=== PATIENT | female | born 1965 | race Hispanic/Latino ===

== ENCOUNTER 2017-04-08 10:48 | Outpatient (CLI) | payer OTHER | END 2017-04-08 10:49 | disposition home or self-care (01) | LOC: DTY/OP 10:48 | PROVIDERS: ATTEND Surgery | DX: E66.01 Morbid (severe) obesity due to excess calories (principal) | CPT/HCPCS: 97802 ==

== ENCOUNTER 2017-05-14 14:30 | Inpatient (IN) | payer MEDICARE, MEDICAID ==
[2017-05-20] MEDS ORDERED: Midazolam HCl 2 mg/2 ml Vial ONE ×2 (09:34→09:35)
[2017-05-20] MEDS ORDERED: Bupivacaine 0.25% HCL 30 ML VIAL ONE (09:34)
[2017-05-20] MEDS ORDERED: Heparin 5,000 UNITS/ML VIAL ONE (09:34)
[2017-05-20] MEDS ORDERED: Lidocaine 1% w/Epinephrine 1:200K 30 ML VIAL ONE (09:34)
[2017-05-20] MEDS ORDERED: CEFAZOLIN/Water 2 GM/20 ML SYRINGE ONE (09:34)
[2017-05-20] MEDS ORDERED: Fentanyl 100 MCG/2 ML VIAL ONE ×4 (09:35→11:51)
[2017-05-20] MEDS ORDERED: diphenhydrAMINE 50 MG/ML VIAL IM PRN (09:51)
[2017-05-20] MEDS ORDERED: Meperidine HCl/PF 25 MG/ML VIAL SLOW IVP PRN (09:51)
[2017-05-20] MEDS ORDERED: HYDROmorphone 10 mg/100 ml CADD IVPB PRN (09:51)
[2017-05-20] MEDS ORDERED: HYDROmorphone 2 MG/ML VIAL SLOW IVP PRN (09:51)
[2017-05-20] MEDS ORDERED: Naloxone HCl 0.4 mg/ml Vial IV PRN (09:51)
[2017-05-20] MEDS ORDERED: Morphine Sulfate 2 MG/ML SYRINGE SLOW IVP PRN (09:51)
[2017-05-20] MEDS ORDERED: diphenhydrAMINE 50 MG/ML VIAL IVP PRN ×2 (09:51→11:03)
[2017-05-20] MEDS ORDERED: Promethazine HCl 25 MG/ML VIAL IM PRN ×2 (09:51→11:03)
[2017-05-20] MEDS ORDERED: diphenhydrAMINE 25 MG CAP PO PRN (09:51)
[2017-05-20] MEDS ORDERED: Ondansetron HCl/PF 4 MG/2 ML Vial IVP PRN ×2 (09:51→11:03)
[2017-05-20] MEDS ORDERED: Zolpidem Tartrate 5 MG TAB PO PRN (09:51)
[2017-05-20] MEDS ORDERED: Promethazine HCl 25 MG/ML VIAL SLOW IVP PRN (09:51)
[2017-05-20] MEDS ORDERED: Communication Order-Pharmacy FS SCH (10:00)
[2017-05-20] MEDS ORDERED: Dextrose 5% in Water 1,000 ML IV PRN (11:03)
[2017-05-20] MEDS ORDERED: hydrALAZINE 20 MG/ML VIAL SLOW IVP PRN (11:03)
[2017-05-20] MEDS ORDERED: Hydrocodone-Acetamin 15 ML UDCUP PO PRN (11:03)
[2017-05-20] MEDS ORDERED: Insulin Regular 300 UNITS/3 ML VIAL SC PRN (11:03)
[2017-05-20] MEDS ORDERED: Dextrose 50% Abboject 50 ML SYRINGE SLOW IVP PRN (11:03)
--- NOTE | 2017-05-20 11:21 | OP ---
PREOPERATIVE DIAGNOSIS: Morbid obesity. SURGEON: Diego Salas M.D. PROCEDURES PERFORMED: Laparoscopic hiatal hernia repair, sleeve gastrectomy, esophagogastroscopy. INDICATIONS: A 51-year-old female, morbidly obese, who has attempted multiple weight loss programs w [facility] success. FINDINGS: She had a moderate sized hiatal hernia which was repaired with a posterior plication. A 3 8 Sudanese bougie was used. She had a very irregular left lobe of the liver, kind of lobulated. PROCEDURE IN DETAIL: After informed consent was obtained, the patient was taken to the operating rafal m and given general endotracheal anesthesia, placed in the supine position. The abdomen was prepped and draped in the usual fashion. Local anesthesia infiltrated subcutaneously and a 12 mm incision wa s performed approximately 8 inches below the xiphoid slightly to the left. Veress needle inserted. Drop test performed. Pneumoperitoneum was created to a volume of 2 liters of carbon dioxide. Utiliz ing a bladeless 12 mm trocar and 0 degree laparoscope, direct visual entry in the abdominal cavity wa s performed. Pneumoperitoneum was created to a pressure of 15 mmHg and the patient placed in steep r everse Trendelenburg position. A Ronald liver retractor inserted. Left lobe of liver retracted s uperiorly. She was noted to have a hiatal hernia. The omentum was taken off the greater curvature o f 5 cm from the pylorus utilizing the LigaSure. Short gastrics divided with LigaSure and left crura defined with the LigaSure. Then the gastrophrenic ligament divided and the esophagus fully reduced i ntraabdominally. A posterior crural plication was performed utilizing 0 Ethibond with the Sew-Right and tie knot device. This was done over the 38-Sudanese bougie. The 38-Sudanese bougie was then directe d into the antrum and a linear 60 mm green load stapler used to divide the antrum to the bougie, gold load along the bougie, and a series of blues through the angle of His. Intraoperative endoscopy was performed. The video endoscope inserted under direct vision and advanced into the sleeve. Staple l ine inspected. There was no bleeding. Staple line then tested by inflating the new stomach with pre ssurized air under water. There was no air leak. Stomach decompressed. Scope removed. The remnant stomach removed from the abdomen through the left lateral port site. The fascia closed with 0 Vicry l suture and the GraNee needle. Trocars and retractors removed after hemostasis assured and the skin closed with interrupted 4-0 Rapide. Dermabond applied. The patient tolerated the procedure well an d transferred to recovery in good condition. Sponge and needle count verified correct x2.
[2017-05-20] MEDS ORDERED: Fentanyl 5000 MCG/250 ML CADD IV PRN (11:39)
[2017-05-20 14:29] VITALS: BMI 38.0
[2017-05-20] MEDS ORDERED: Lidocaine 1% PF 5 ML VIAL ONE (14:50)
[2017-05-20] MEDS ORDERED: Glycopyrrolate 0.2 MG/ML 5 ML SYRINGE ONE (14:50)
[2017-05-20] MEDS ORDERED: Ketorolac Tromethamine 30 MG/ML VIAL ONE (14:50)
[2017-05-20] MEDS ORDERED: Dexamethasone 20 MG/5 ML VIAL ONE (14:50)
[2017-05-20] MEDS ORDERED: PROPOFOL 200 MG/20 ML VIAL ONE (14:50)
[2017-05-20] MEDS ORDERED: Ondansetron HCl/PF 4 MG/2 ML Vial ONE (14:50)
[2017-05-20] MEDS: 1/2 NS w/KCL 20 mEq 1,000 ML IV SCH ×2 (17:47→21:24)
[2017-05-20] MEDS: CEFAZOLIN/Water 2 GM/20 ML SYRINGE SLOW IVP SCH (17:47)
[2017-05-20 19:26] LABS: #Basophils 0.1 thou/uL (0.0-0.2); #Lymphocytes 3.1 thou/uL (1.20-3.40); #Monocytes 0.6 thou/uL (0.11-0.59); #Neutrophils 13.7 thou/uL (1.40-6.50); %Basophils 0.3 % (0.0-1.0); %Eosinophils 0.1 % (0.0-10.0); %Lymphocytes 17.8 % (21.0-51.0); %Monocytes 3.4 % (0.0-10.0); %Neutrophils 78.4 % (42.0-75.0); Hemoglobin 13.1 g/dL (12.0-16.0); Mean Corpuscular HGB CONC 32.1 g/dL (32.0-36.0); Mean Corpuscular Hemoglobin 29.1 pg (27.0-31.0); Mean Corpuscular Volume 90.7 fl (81.0-99.0); Mean Platelet Volume 8.2 fL (7.4-10.4); Platelet Count 333 thou/uL (130-400); RBC Distribution Width 11.2 % (11.5-14.5); White Blood Cell (WBC) Count 17.5 thou/uL (4.8-10.8)
[2017-05-20 19:48] LABS: Anion Gap 18 mmol/L (10-20); BUN (Urea Nitrogen) 9 mg/dL (9.8-20.1); Calc. Creatinine Clearance 122 mL/min (70-130); Calcium 9.2 mg/dL (7.8-10.44); Carbon Dioxide 19 mmol/L (22-29); Chloride 102 mmol/L (98-107); Estimated GFR-MDRD 71; Glucose 328 mg/dL (70-105); Potassium 4.8 mmol/L (3.5-5.1); Sodium 134 mmol/L (136-145)
[2017-05-20] MEDS ORDERED: DC PCA Order Set 1 EACH FS ONE (19:51)
[2017-05-20] MEDS ORDERED: Morphine 2 MG/ML SYRINGE SLOW IVP PRN (19:51)
[2017-05-20] MEDS ORDERED: Morphine 5 MG/ML SYRINGE SLOW IVP PRN (19:51)
[2017-05-20] MEDS ORDERED: Sodium Chloride 0.9% 1,000 ML IV SCH (23:15)
[2017-05-21] MEDS: CEFAZOLIN/Water 2 GM/20 ML SYRINGE SLOW IVP SCH (01:31)
[2017-05-21 05:41] LABS: #Basophils 0.1 thou/uL (0.0-0.2); #Lymphocytes 2.4 thou/uL (1.20-3.40); #Monocytes 0.8 thou/uL (0.11-0.59); #Neutrophils 7.9 thou/uL (1.40-6.50); %Basophils 0.6 % (0.0-1.0); %Eosinophils 0.3 % (0.0-10.0); %Lymphocytes 21.7 % (21.0-51.0); %Monocytes 7.4 % (0.0-10.0); Hemoglobin 10.2 g/dL (12.0-16.0); Mean Corpuscular HGB CONC 33.3 g/dL (32.0-36.0); Mean Corpuscular Hemoglobin 30.3 pg (27.0-31.0); Mean Corpuscular Volume 90.7 fl (81.0-99.0); Mean Platelet Volume 8.3 fL (7.4-10.4); Platelet Count 248 thou/uL (130-400); RBC Distribution Width 11.1 % (11.5-14.5); Red Blood Cell (RBC) Count 3.37 mill/uL (4.20-5.40); White Blood Cell (WBC) Count 11.3 thou/uL (4.8-10.8)
[2017-05-21 06:02] LABS: Anion Gap 11 mmol/L (10-20); BUN (Urea Nitrogen) 8 mg/dL (9.8-20.1); Calc. Creatinine Clearance 146 mL/min (70-130); Calcium 8.3 mg/dL (7.8-10.44); Carbon Dioxide 24 mmol/L (22-29); Chloride 104 mmol/L (98-107); Estimated GFR-MDRD 88; Glucose 217 mg/dL (70-105); Potassium 3.8 mmol/L (3.5-5.1); Sodium 135 mmol/L (136-145)
[2017-05-21] MEDS: 1/2 NS w/KCL 20 mEq 1,000 ML IV SCH (06:23)
[2017-05-21] MEDS ORDERED: Pantoprazole 40 MG VIAL IVP SCH (09:00)
[2017-05-21] MEDS ORDERED: Enoxaparin Sodium 40 MG/0.4 ML SYRINGE SC SCH (09:00)
--- NOTE | 2017-05-21 09:38 | RAD ---
UPPER GI SERIES SINGLE COLUMN: Date: 05/21/17 HISTORY: 51-year-old female immediately status post bariatric surgery. TECHNIQUE: Patient swallowed 15 mL of Gastrografin while upright. Brief, intermittent fluoroscopy performed. FINDINGS: There is delayed transit of the contrast material through the narrowed gastric channel into the duode num. No evidence of leakage or high grade obstruction. IMPRESSION: 1. No complications. 2. Findings suggestive of postsurgical edema. POS: [facility]
[2017-05-21] MEDS ORDERED: Hydrocodone-Acetamin 15 ML UDCUP PO PRN (12:22)
[2017-05-21 13:15] VITALS: BP 121/67; TEMP 98.6
--- NOTE | 2017-05-21 13:33 | DIS ---
DISCHARGE DIAGNOSES: Morbid obesity, diabetes, hiatal hernia. PROCEDURES DURING ADMISSION: Laparoscopic hiatal hernia repair, laparoscopic sleeve gastrectomy, eso phagogastroduodenoscopy, postoperative Gastrografin swallow. HOSPITAL COURSE: The patient was admitted, taken to the operating room. She underwent repair of a h iatal hernia and a sleeve gastrectomy with EGD. Postoperatively, she has done well. Initial Gastrog rafin swallow showed some slow transit and edema, but she is tolerating liquids well. Pain is contro lled with p.o. medications. She is discharged home in good condition on hydrocodone elixir and Zofra n. She will follow up with me in 2 weeks.
[2017-05-21] MEDS ORDERED: Gadobenate Dimeglumine 529 MG/1 ML (5 ML VIAL) ONE (14:06)
--- NOTE | 2017-05-21 23:41 | EKG ---
Test Reason : CODE GREEN Blood Pressure : / mmHG Vent. Rate : 091 BPM Atrial Rate : 091 BPM P-R Int : 150 ms QRS Dur : 116 ms QT Int : 404 ms P-R-T Axes : 036 041 019 degrees QTc Int : 496 ms Normal sinus rhythm Right bundle branch block Abnormal ECG No previous ECGs available Confirmed by Grant OROPEZA ([id number]) on 05/21/2017 11:41:25 PM Referred By: MARLEN Confirmed By:Grant OROPEZA
== END 2017-05-21 16:25 | disposition home or self-care (01) | DRG 621 ==
LOC: EDSTATUS 14:30 → SURG A 05-20 08:34
PROVIDERS: ADMIT Surgery; ATTEND Surgery
PROC: 0DB64Z3 Excision of Stomach, Percutaneous Endoscopic Approach, Vertical (ICD-10-PCS; principal; 2017-05-21)
PROC: 0BQT4ZZ Repair Diaphragm, Percutaneous Endoscopic Approach (ICD-10-PCS; 2017-05-21)
DX: E11.9 Type 2 diabetes mellitus without complications (principal); E66.01 Morbid (severe) obesity due to excess calories; K44.9 Diaphragmatic hernia without obstruction or gangrene; G47.30 Sleep apnea, unspecified; Z68.38 Body mass index [BMI] 38.0-38.9, adult; Z86.19 Personal history of other infectious and parasitic diseases; Z83.3 Family history of diabetes mellitus; Z82.49 Family history of ischemic heart disease and other diseases of the circulatory system
CPT/HCPCS: 36415; 36416; 74241; 80048; 85025; 86850; 86900; 86901; 86921; 88307; 88312; 93005; 93010; 94760; A4216; A9579; C9113; J0131; J1100; J1644; J1650; J1815; J1885; J2001; J2250; J2405; J2704; J3010; S0020

== ENCOUNTER 2017-05-14 14:45 | Outpatient (CLI) | payer MEDICARE, MEDICAID ==
--- NOTE | 2017-05-14 15:55 | RAD ---
TWO VIEW CHEST: Clinical history: Pre-operative assessment. FINDINGS: There is no consolidation, effusion, or pneumothorax. Cardiac silhouette is normal in size. There is osseous degenerative change. IMPRESSION: No focal consolidation. POS: [facility]
[2017-05-14 15:58] LABS: Hemoglobin A1c 9.9 % (4.0-6.0)
[2017-05-14 16:06] LABS: ALT (SGPT) 56 U/L (8-55); AST (SGOT) 49 U/L (5-34); Albumin 4.5 g/dL (3.5-5.0); Alkaline Phosphatase 116 U/L (40-150); Anion Gap 16 mmol/L (10-20); BUN (Urea Nitrogen) 15 mg/dL (9.8-20.1); Bilirubin, Direct 0.1 mg/dL (0.1-0.3); Bilirubin, Total 0.3 mg/dL (0.2-1.2); Calc. Creatinine Clearance 0 mL/min (70-130); Calcium 10.1 mg/dL (7.8-10.44); Carbon Dioxide 27 mmol/L (22-29); Chloride 95 mmol/L (98-107); Estimated GFR-MDRD 65; Globulin 3.5 g/dL (2.4-3.5); Glucose 410 mg/dL (70-105); Potassium 4.5 mmol/L (3.5-5.1); Sodium 133 mmol/L (136-145)
[2017-05-15 19:55] LABS: Band 2 % (5-11); Eosinophils 2 % (0-10); Hemoglobin 14.3 g/dL (12.0-16.0); Lymphocytes 29 % (21-51); MDiff Complete? YES; Mean Corpuscular HGB CONC 33.4 g/dL (32.0-36.0); Mean Corpuscular Hemoglobin 30.4 pg (27.0-31.0); Mean Platelet Volume 10.1 fL (7.4-10.4); Monocytes 5 % (0-10); Neutrophil 58 % (42-75); PLT Morphology Comment Appears Adequate; Platelet Count 260 thou/uL (130-400); RBC Distribution Width 11.5 % (11.5-14.5); Reactive Lymphocytes 3 % (0-10); Red Blood Cell (RBC) Count 4.69 mill/uL (4.20-5.40); White Blood Cell (WBC) Count 11.2 thou/uL (4.8-10.8)
== END 2017-05-14 14:46 | disposition home or self-care (01) ==
LOC: LABBT 14:45
PROVIDERS: ATTEND Surgery
DX: Z01.818 Encounter for other preprocedural examination (principal); E11.9 Type 2 diabetes mellitus without complications; G47.30 Sleep apnea, unspecified; Z68.37 Body mass index [BMI] 37.0-37.9, adult
CPT/HCPCS: 71046; 80053; 80076; 83036; 85025

== ENCOUNTER 2018-01-16 08:11 | Outpatient (CLI) | payer MEDICARE, MEDICAID | END 2018-01-16 08:12 | disposition home or self-care (01) | LOC: BICULT 08:11 | PROVIDERS: ATTEND Family Medicine | DX: Z12.31 Encounter for screening mammogram for malignant neoplasm of breast (principal); R10.11 Right upper quadrant pain; K76.9 Liver disease, unspecified | CPT/HCPCS: 76705; 77063; 77067 ==

== ENCOUNTER 2018-02-07 12:58 | Outpatient (CLI) | payer MEDICARE, MEDICAID ==
--- NOTE | 2018-02-07 16:10 | CT ---
CT ABDOMEN AND PELVIS WITH AND WITHOUT IV CONTRAST: Date: 02/07/18 HISTORY: Liver mass. Abdominal pain. COMPARISON: Right upper quadrant sonogram from 01/16/18. FINDINGS: The lung bases are clear. Postoperative changes of the stomach are apparent. No free air or free flui d. Degenerative changes lumbar spine. Along the anterior medial margin of the right liver lobe, at the level of the hepatic flexure of the colon, a subcapsular lobular slightly low density lesion correlates with the abnormality on recent so nogram. It shows heterogeneous enhancement upon contrast administration arterial phase with nodular e nhancement on the portal venous phase. The area of concern for a second, ill-defined low density abnormality more anteriorly in the right li leticia lobe shows no evidence of mass on the CT exam. The spleen, kidneys, adrenal glands, and pancreas are unremarkable. There are postoperative changes o f the stomach. Lack of oral contrast limits evaluation of the bowel. A large, gas-filled diverticulum projects superiorly from the third portion of the duodenum. No evidence of bowel obstruction. IMPRESSION: 1. The 1.3 cm indeterminate low density subcapsular lesion along the medial margin of the right live r lobe correlates with a sonographic abnormality. It still could represent an atypical hemangioma, al though the small size precludes confident identification. Please consider follow-up CT of the liver i n 6 months to evaluate for stability. 2. No other significant abnormalities are apparent. Incidental type findings are as detailed above. POS: [facility]
== END 2018-02-07 12:59 | disposition home or self-care (01) ==
LOC: BICCT 12:58
PROVIDERS: ATTEND Family Medicine
DX: R16.0 Hepatomegaly, not elsewhere classified (principal); K76.9 Liver disease, unspecified
CPT/HCPCS: 74178

== ENCOUNTER 2021-04-04 09:06 | Outpatient (CLI) | payer MEDICARE, MEDICAID | END 2021-04-04 09:07 | disposition home or self-care (01) | LOC: BICMAMMO 09:06 | PROVIDERS: ATTEND Student in an Organized Health Care Education/Training Program | DX: Z12.31 Encounter for screening mammogram for malignant neoplasm of breast (principal); Z13.820 Encounter for screening for osteoporosis; Z78.0 Asymptomatic menopausal state; M85.88 Other specified disorders of bone density and structure, other site | CPT/HCPCS: 77063; 77067; 77080 ==

== ENCOUNTER 2022-05-16 09:01 | Outpatient (CLI) | payer MEDICARE, MEDICAID | END 2022-05-16 09:02 | disposition home or self-care (01) | LOC: BICMAMMO 09:01 | PROVIDERS: ATTEND Student in an Organized Health Care Education/Training Program | DX: Z12.31 Encounter for screening mammogram for malignant neoplasm of breast (principal) | CPT/HCPCS: 77063; 77067 ==

== ENCOUNTER 2023-06-20 12:54 | Outpatient (CLI) | payer MEDICARE, MEDICAID | END 2023-06-20 12:55 | disposition home or self-care (01) | LOC: BICMAMMO 12:54 | PROVIDERS: ATTEND Family Medicine | DX: Z12.31 Encounter for screening mammogram for malignant neoplasm of breast (principal) | CPT/HCPCS: 77063; 77067 ==